=== PATIENT | male | born 2000 | race Caucasian/White ===

== ENCOUNTER 2023-12-09 20:58 | Emergency (ER) | payer MEDICAID, OTHER ==
[~2023-12-09] VITALS: Ht 170.2 cm; Wt 97.0 kg
[2023-12-09 21:05] VITALS: TEMP 97.9; O2SAT 100
[2023-12-09] MEDS ORDERED: SULF1TAB48 MT (23:14)
[2023-12-09] MEDS ORDERED: NAPR-681 PO (23:14)
[2023-12-09] MEDS ORDERED: CEPH500C2 MT (23:14)
[2023-12-09] MEDS ORDERED: ERYT1OIN6 EACHEYE (23:14)
[2023-12-09 23:33] VITALS: BP 108/76; PULSE 70; RESP 20; O2SAT 99
== END 2023-12-09 23:34 | disposition home or self-care (01) ==
LOC: ER 20:58
DX: L03.213 Periorbital cellulitis (principal); H10.33 Unspecified acute conjunctivitis, bilateral
CPT/HCPCS: 99283